=== PATIENT | female | born 1965 | race African-American/Black ===

== ENCOUNTER → 2016-10-07 | Outpatient (CLI) | payer OTHER ==
[2015-10-17 22:02] VITALS: BP 176/90
--- NOTE | 2016-10-07 12:29 | RAD ---
Indication heavy menstrual bleeding. Indication heavy menstrual bleeding. Initially transabdominal scans were obtained. Initial transabdominal scans were supplemented with transvaginal scans. Imaging is somewhat limited secondary to patient body habitus. The uterus measures approximately 13 x 8.4 x 5.8 cm. There is a 4 cm mass associated with the body of the uterus, on the left, compatible with a fibroid. Significant endometrial thickening is not seen. The ovaries were not identified. No adnexal mass was seen. Significant free fluid was not seen in the pelvis. IMPRESSION: Limited study. Fibroid uterus. Nonvisualization of the ovaries
== END | disposition home or self-care (01) ==
LOC: US 09:16
PROVIDERS: ATTEND Physician Assistant
DX: Z12.31 Encounter for screening mammogram for malignant neoplasm of breast (principal); Z01.411 Encounter for gynecological examination (general) (routine) with abnormal findings; N92.0 Excessive and frequent menstruation with regular cycle; D25.9 Leiomyoma of uterus, unspecified
CPT/HCPCS: 76830; 76856; G0202; 77067